=== PATIENT | female | born 1980 | race Caucasian/White ===

== ENCOUNTER 2023-11-19 03:34 | Emergency (ER) | payer MEDICAID ==
[~2023-11-19] VITALS: Ht 157.5 cm; Wt 50.0 kg
[2023-11-19 03:40] VITALS: BP 153/98; PULSE 115; RESP 20; TEMP 98.2; O2SAT 100
== END 2023-11-19 04:51 | disposition left against medical advice (07) ==
LOC: ER 03:34
DX: M79.641 Pain in right hand (principal); M54.9 Dorsalgia, unspecified; Z53.21 Procedure and treatment not carried out due to patient leaving prior to being seen by health care provider
CPT/HCPCS: 99281